=== PATIENT | male | born 1975 | race Caucasian/White ===

== ENCOUNTER 2022-09-14 07:40 | Day surgery (SDC) | payer BC ==
[2022-09-10 12:29] VITALS: BMI 24.4
[2022-09-14] MEDS ORDERED: Lidocaine 2% MPF 10 ML AMP (For Epidural Use) ONE (09:19)
[2022-09-14] MEDS ORDERED: PROPOFOL 40 ML ONE (09:19)
== END 2022-09-14 10:30 | disposition home or self-care (01) ==
LOC: CSHSDC 07:40
PROVIDERS: ATTEND Internal Medicine Gastroenterology
PROC: 0DJD8ZZ Inspection of Lower Intestinal Tract, Via Natural or Artificial Opening Endoscopic (ICD-10-PCS; principal; 2022-09-14)
DX: Z12.11 Encounter for screening for malignant neoplasm of colon (principal); K57.30 Diverticulosis of large intestine without perforation or abscess without bleeding; K64.9 Unspecified hemorrhoids; E78.5 Hyperlipidemia, unspecified
CPT/HCPCS: J2704